=== PATIENT | female | born 1990 | race Caucasian/White ===

== ENCOUNTER 2024-09-26 08:56 | Outpatient (CLI) | payer OTHER, SELFPAY | END 2024-09-26 08:57 | disposition home or self-care (01) | LOC: NFLDREF 10-05 23:46 | PROVIDERS: PCP Emergency Medicine; Referring Provider Emergency Medicine; Visit Provider Emergency Medicine | DX: Z13.1 Encounter for screening for diabetes mellitus (principal); Z13.29 Encounter for screening for other suspected endocrine disorder; Z13.6 Encounter for screening for cardiovascular disorders | CPT/HCPCS: 80053; 80061; 84443 ==

== ENCOUNTER 2024-10-08 12:55 | Outpatient (CLI) | payer OTHER, SELFPAY ==
[2024-10-17 03:14] LABS: HPV Source Cervical; HPV, High Risk by TMA Not Detected
== END 2024-10-08 12:56 | disposition home or self-care (01) ==
PROVIDERS: PCP Emergency Medicine; Visit Provider Emergency Medicine
DX: Z12.4 Encounter for screening for malignant neoplasm of cervix (principal); Z11.51 Encounter for screening for human papillomavirus (HPV)
CPT/HCPCS: 87624; 87625; 88141; 88142